=== PATIENT | female | born 1960 | race Caucasian/White ===

== ENCOUNTER 2016-06-24 09:06 | Inpatient (IN) ==
--- NOTE | 2016-06-23 20:47 | Discharge Summary ---
<MarlirosaAmbar L - Last Filed: 06/23/16 20:45> Date of Encounter: 06/27/16 - Discharge Diagnosis (1) Arthritis of knee, right Priority: Primary Status: Acute (2) DMII (diabetes mellitus, type 2) Priority: Secondary Status: Chronic Qualifiers: Diabetes mellitus complication status: with unspecified complications Diabetes mellitus senior care insulin use: unspecified senior care insulin use status Qualified Code(s): E11.8 - Type 2 diabetes mellitus with unspecified complications (3) COPD (chronic obstructive pulmonary disease) Priority: Secondary Status: Chronic Qualifiers: COPD type: unspecified COPD Qualified Code(s): J44.9 - Chronic obstructive pulmonary disease, unspecified (4) HLD (hyperlipidemia) Priority: Secondary Status: Chronic Qualifiers: Hyperlipidemia type: unspecified Qualified Code(s): E78.5 - Hyperlipidemia , unspecified (5) Obesity Priority: Secondary Status: Chronic Qualifiers: Obesity type: unspecified obesity type Obesity severity: morbid Qualified Code(s): E66.01 - Morbid (severe) obesity due to excess calories (6) Spondylolisthesis at L5-S1 level Priority: Secondary Status: Chronic - Discharge Medications Prescriptions: Sulfamethoxazole/Trimeth DS [Bactrim DS] 1 each PO BID #60 tablet Home Medications: Acetaminophen [Tylenol] 325 mg PO Q6HR 02/22/15 [History] Albuterol Sulfate [Albuterol Inhaler] 2 puff IH Q4HR PRN 02/22/15 [History] Buspirone HCl [Buspar] 10 mg PO BID 02/22/15 [History] Cetirizine HCl [Zyrtec] 10 mg PO DAILY 02/22/15 [History] Citalopram [CeleXA] 20 mg PO DAILY 02/22/15 [History] GlyBURIDE 5 mg PO DAILY 02/22/15 [History] Pioglitazone HCl [Actos] 45 mg PO DAILY 02/22/15 [History] Simvastatin [Zocor] 20 mg PO QPM 02/22/15 [History] Aspirin Enteric Coated [Aspirin EC] 325 mg PO DAILY #21 tablet. 06/23/16 [Rx] OxyCODONE Immed Rel [Roxicodone 5 MG] 5 - 10 mg PO Q6HR PRN #40 tablet 06/23/16 [Rx] Albuterol Neb [Proventil Neb] 2.5 mg IH TID 06/24/16 [History] Ketorolac OPTH Soln [Acular] 1 drop LEFT EYE QID 06/24/16 [History] Mometasone/Formoterol [Dulera 200 Mcg/5 Mcg Inhaler] 2 puff IH BID 06/24/16 [ History] Sulfamethoxazole/Trimeth DS [Bactrim DS] 1 each PO BID #60 tablet 06/25/16 [Rx] Allergies/Adverse Reactions: Allergies latex Allergy (Mild, Verified 06/24/16 23:20) Hives PATIENT TESTED NEGATIVE. Patient states sensitive to lates. aspirin Adverse Reaction (Mild, Verified 06/24/16 19:13) Vomiting hydrocodone [From Vicodin] Adverse Reaction (Mild, Verified 06/24/16 19:13) Vomiting Primary care physician: Elisa Holguin CNP - Patient Status Disposition: Home, Self-Care Condition: Good - Discharge Instructions Follow Up With: Elisa Holguin CNP [Primary Care Provider] - 09/23/16 4:00 pm Vonnie Thomas MD [Partnered Physician] - 07/17/16 2:30 pm - Hospital Course Hospital course: Ms. Narayan is a 55 year old female - Time Spent with Patient Total time spent providing and/or coordinating discharge services: <Jose Daniel Grissom - Last Filed: 06/25/16 06:23> Date of Encounter: 06/25/16 Time of Encounter: 06:22 - Discharge Diagnosis (1) Arthritis of knee, right Priority: Primary Status: Acute (2) COPD (chronic obstructive pulmonary disease) Priority: Secondary Status: Chronic Qualifiers: COPD type: unspecified COPD Qualified Code(s): J44.9 - Chronic obstructive pulmonary disease, unspecified (3) DMII (diabetes mellitus, type 2) Priority: Secondary Status: Chronic Qualifiers: Diabetes mellitus complication status: with unspecified complications Diabetes mellitus food tester insulin use: unspecified food tester insulin use status Qualified Code(s): E11.8 - Type 2 diabetes mellitus with unspecified complications (4) HLD (hyperlipidemia) Priority: Secondary Status: Chronic Qualifiers: Hyperlipidemia type: unspecified Qualified Code(s): E78.5 - Hyperlipidemia , unspecified (5) Obesity Priority: Secondary Status: Chronic Qualifiers: Obesity type: unspecified obesity type Obesity severity: morbid Qualified Code(s): E66.01 - Morbid (severe) obesity due to excess calories (6) Spondylolisthesis at L5-S1 level Priority: Secondary Status: Chronic Primary care physician: Elisa Holguin CNP - Patient Status Functional capacity at discharge: uses cane/walker Overall status at discharge: patient is progressing back to baseline - Hospital Course Hospital course: Ms. Narayan is a 55 year old female The patient had an uneventful postoperative course. They received antibiotics and physical therapy and were discharged in stable condition. There will follow -up in the office in 2 weeks. Aspirin DVT prophylaxis - Time Spent with Patient Total time spent providing and/or coordinating discharge services:
--- NOTE | 2016-06-24 09:25 | Anesthesia Evaluation PreOp ---
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: Seizures (one episode, on no meds) Other Medical History: Diabetes Type II, GERD, Other (obesity BMI=44.9) Anesthesia History: No Prior Anesthetic Complications, Past Anesthesia Alcohol Use: none Drug use: none Medications and Allergies Acetaminophen [Tylenol] 325 mg PO Q6HR 02/22/15 [History] Albuterol Sulfate [Albuterol Inhaler] 2 puff IH Q4HR PRN 02/22/15 [History] Buspirone HCl [Buspar] 10 mg PO BID 02/22/15 [History] Cetirizine HCl [Zyrtec] 10 mg PO DAILY 02/22/15 [History] Citalopram [CeleXA] 20 mg PO DAILY 02/22/15 [History] GlyBURIDE 5 mg PO DAILY 02/22/15 [History] Pioglitazone HCl [Actos] 45 mg PO DAILY 02/22/15 [History] Simvastatin [Zocor] 20 mg PO QPM 02/22/15 [History] Aspirin Enteric Coated [Aspirin EC] 325 mg PO DAILY #21 tablet. 06/23/16 [Rx] OxyCODONE Immed Rel [Roxicodone 5 MG] 5 - 10 mg PO Q6HR PRN #40 tablet 06/23/16 [Rx] Allergies latex Allergy (Mild, Unverified 02/22/15 09:36) Hives PATIENT TESTED NEGATIVE acetaminophen [From Vicodin] Adverse Reaction (Mild, Unverified 02/22/15 09:36) Vomiting aspirin Adverse Reaction (Mild, Unverified 02/22/15 09:36) Vomiting hydrocodone [From Vicodin] Adverse Reaction (Mild, Unverified 02/22/15 09:36) Vomiting - Meds/Allergy Pre-op Review Medications Reviewed: Yes Allergies Reviewed: Yes Beta Blockers on Current Med List: No Anesthesia Results - Labs Laboratory Tests 07/27/14 06/14/16 06/14/16 15:20 11:36 11:36 WBC 8.4 Hgb 13.9 Hct 44.1 Plt Count 251 PT 11.8 INR 1.1 APTT 35.6 Sodium Potassium BUN Creatinine Latex Allergen <0.35 Latex Allergen IgE Ab Allergen Test Interp 06/14/16 06/14/16 11:36 11:36 WBC Hgb Hct Plt Count PT INR APTT Sodium 139 Potassium 4.2 BUN 13 Creatinine 0.86 Latex Allergen Latex Allergen IgE Ab <0.10 Allergen Test Interp SEE NOTE - Imaging EKG: report reviewed (06/14/2016 SR, marked LAD, low QRS voltage in precordial leads, possible anterior infarct) Anesthesia Exam O2 Sat Height 1.52 m Height 1.52 m Height 1.52 m Weight 104.326 kg Weight 104.326 kg Weight 104.326 kg O2 Sat by Pulse Oximetry 95 O2 Sat by Pulse Oximetry 95 Vital Signs Temp Pulse Resp BP Pulse Ox 98.1 F 88 18 145/80 95 06/24/16 09:29 06/24/16 09:29 06/24/16 09:29 06/24/16 09:29 06/24/16 09:29 Blood Glucose* 95 Height: 5' Weight: 230 lbs NPO (# of Hours): 8 Pain Scale: 0 Pain Scale Used: Numeric (1 - 10) - HEENT Pupil (Motor): EOMI Mallampati: II Teeth: Edentulous Denture Type: Upper: Complete, Lower: Complete Oral Opening: Greater than 3 - HYDRATOR OPERATOR LOC: Oriented HYDRATOR OPERATOR Motor: Normal RUE, Normal LUE, Normal RLE, Normal LLE, Normal Face HYDRATOR OPERATOR Sensory: Normal: RUE, LUE, RLE, LLE, Face - Cardiac Rhythm: Regular Murmur: None - Pulmonary Breath Sounds: bilateral Clear Respiratory Effort: Symmetrical Anesthesia Assess/Plan ASA Score: 3 Modified Nicolette Scale for Level of Consciousness: Cooperative, oriented, and tranquil Anesthetic Plan: General, Regional Monitoring Plan: Standard Monitors Recovery Plan: PACU
[2016-06-24] MEDS ORDERED: CeFAZolin Pre 2,000 MG/100 ML 2,000 MG/100 ML BAG IVPB ONE (09:27)
[2016-06-24] MEDS ORDERED: Ringers Solution, Lactated 500 ML IVC SCH (09:30)
--- NOTE | 2016-06-24 09:44 | History & Physical Report ---
Date of Encounter: 06/24/16 Time of Encounter: 09:43 24 Hour HP Update - Instructions Instructions: If the History and Physical is less than 30 days old and was completed prior to A.M. admission and or procedure and has NOT been updated on calendar day of procedure please complete this update prior to performing procedure. - Update Patient reports changes in Medical Condition: No Changes in assessment/condition: No Changes in Medication: No Preop tests/diagnostics Reviewed: Yes Surgery Remains Indicated: Yes Consent for Planned Operative Procedure(s) Verified: Yes - Pre-Operative Checklist Preoperative Checklist Indicated: No Prophylactic Antibiotic Ordered: Yes Is VTE Prophylaxis Indicated?: Yes
[2016-06-24] MEDS: Albuterol 2.5 MG/3 ML NEBULIZER IH ONE ×2 (09:47→12:36)
[2016-06-24] MEDS ORDERED: *HR* Propofol 200 MG/20 ML VIAL IVP ONE (10:23)
[2016-06-24] MEDS ORDERED: Lidocaine -MPF 2% 2 ML VIAL ONE (10:24)
[2016-06-24] MEDS ORDERED: Dexamethasone 4 MG/ML VIAL ONE (10:24)
[2016-06-24] MEDS ORDERED: Ondansetron 4 MG/2 ML VIAL ONE (10:24)
[2016-06-24] MEDS ORDERED: *HR* FentaNYL (PF) 100 MCG/2 ML VIAL ONE ×2 (10:36→11:36)
[2016-06-24] MEDS ORDERED: *HR* Midazolam HCl 2 MG/2 ML VIAL ONE (10:36)
[2016-06-24] MEDS ORDERED: Tetracaine/PF 20 MG/2 ML AMPUL SPINA ONE (10:37)
[2016-06-24] MEDS ORDERED: Bupivacaine/EPI 1:200k 0.5%PF 30 ML VIAL ONE (10:37)
[2016-06-24] MEDS ORDERED: Bupivacaine/Clonidine Syringe 1 EACH SYRINGE ONE (10:41)
--- NOTE | 2016-06-24 11:09 | Anesthesia Procedures ---
Date of Encounter: 06/24/16 Time of Encounter: 11:06 Procedures: Anesthesia - Nerve Block Procedure Date: 06/24/16 Time: 11:07 Allergies/Adv Reactions: latex, ASA, vicodin Surgical Procedure: Right Total Knee Checklist: Correct Patient Identifier, Correct procedure, History checked Correct side: Right Blood Thinner: No Monitor Applied: BP, Pulse Oximetry Supplemental Oxygen via Nasal Cannula (L/min): 3 Sedation: Versed (mg): 2 Sedation: Fentanyl (mcg): 100 Indication: Post Op Analgesia (per dr. bedoya) Pre-op Neuro Deficits: No Block Type: Femoral Catheter placed: No Sterile Technique: Yes Ultrasound used: Yes Anatomy identified: Yes Visual spread of Local: Yes Neuro Stimulation: Yes Nerve Stimulator Range: 0.2 - 0.4 mA Smooth Injection of Local: Yes Pain with Injection of Local: No Prep: Chlorhexadine Needle: 22 x 50 mm Stimuplex Local: Other (0.5% bipivicaine, 30cc with 1:[id number] epi, 15cc plain, with 35mg tetracaine) Volume (cc): 45 Number of Attempts: 1 Complications: None/effective block Vitals: Vital Signs/O2 Sat/Glucose, Most Recent Temp Pulse Resp BP Pulse Ox 98.1 F 81 18 143/48 99 06/24/16 09:35 06/24/16 10:52 06/24/16 10:52 06/24/16 10:52 06/24/16 10:52 Blood Glucose* 95 Comments: [facility]
[2016-06-24] MEDS ORDERED: *HR* Promethazine 25 MG/ML VIAL IVP PRN (11:10)
[2016-06-24] MEDS ORDERED: *HR* Labetalol 100 MG/20 ML MDV IVP PRN (11:10)
[2016-06-24] MEDS ORDERED: Ketorolac 30 MG/ML VIAL ONE (11:29)
[2016-06-24] MEDS ORDERED: Lidocaine -MPF 4% 5 ML AMPUL ONE (11:29)
[2016-06-24] MEDS ORDERED: Vancomycin 1,000 MG VIAL ONE ×2 (11:34→11:36)
--- NOTE | 2016-06-24 12:02 | Orthopedic Operative Note ---
Date of procedure: 06/24/16 Pre-op diagnosis: Right knee arthritis Post-op diagnosis: same Procedure: Procedure: Right Total knee replacement Estimated blood loss: 200 cc Hardware: Arthrex Femur: 5 Tibia: 4 PS insert: 14 Patella: 37 Exam Under anesthesia: Loss full extension 10 degrees full flexion and no instability patient with multiple healed sores all over her body discussed other options besides knee replacement patient wanted to proceed with knee replacement surgery. 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 Procedural Notes: Patient noted to have Grade 4 arthritic changes medial compartment grade 3 arthritic changes patellofemoral and lateral compartments. Operative procedure: The patient was brought to the operating room and placed on the operating room table. After general anesthesia was administered the operative knee was examined. Findings were noted in the exam under anesthesia. The operative extremity was prepped and draped in sterile surgical fashion. The patient received IV antibiotics prior to skin incision. A standard midline incision was made centered over the patella. The incision was made through the skin and subcutaneous tissue. A medial parapatellar tendon approach was performed. Care was taken to preserve tissue along the medial aspect of the patella. And to protect the patella tendon. The deep MCL was released off the medial tibia. The infra patella fat pad was excised. Knee was brought into flexion. Patient noted to have Grade 4 arthritic changes medial compartment grade 3 arthritic changes patellofemoral and lateral compartments. The entry hole was made for the intramedullary femoral guide. The guide was seated in 6 degrees of valgus. Anterior cut was made followed by the distal cut. The ACL the PCL the medial and the lateral menisci were excised. The tibia was subluxed forward. The entry hole was made for the intramedullary tibial guide. Guide was seated to resect 2 mm off the more abnormal side. The knee was brought into flexion the distal femur was sized to a 5. The femoral guide was seated, the anterior cut was made followed by the posterior condylar cut, followed by the chamfer cuts. The finishing guide was seated the box cut was made and the lug holes were drilled. The tibia was sized to a 4, the tibial tray was seated and prepared with the large drill followed by the fin cutter. Trial reduction revealed full extension no varus valgus instability with the appropriate 14 PS Oralia. The patella was everted and cut was made at the level of the insertion of the quadriceps and patella tendon. The patella was sized to a 37 the guide was seated and the lug holes are drilled. Trial reduction revealed excellent patella tracking. All trial components were removed all bony surfaces were irrigated. The tibia was cemented first followed by the femur. The 14 PS Oralia was seated and the knee was brought into full extension. The patella was cemented and held in place with the patellar holding clamp. After the cement had hardened, the knee sat for 2 minutes with a Betadine saline solution. The knee was then irrigated out with 2 L of pulse irrigation. The extensor mechanism was closed with #2 FiberWire suture and #2 PDS suture. The subcutaneous tissue was then irrigated and closed deep with #1 PDS suture superficially with 0 PDS suture and skin was closed with skin little and Dermabond. The patient was then placed in a sterile dressing and a postoperative brace extubated and transferred to recovery room in stable condition. Anesthesia: AUDRA Surgeon: Jose Daniel Grissom Condition: stable Disposition: PACU
[2016-06-24] MEDS ORDERED: Albuterol 2.5 MG/3 ML NEBULIZER IH ONE (12:35)
[2016-06-24] MEDS ORDERED: Albuterol 2.5 MG/3 ML NEBULIZER ONE (12:36)
[2016-06-24] MEDS: *HR* HYDROmorphone (PF) 1 MG/ML SYRINGE IVP PRN ×2 (12:54→13:04)
[2016-06-24 13:09] LABS: Hematocrit 37.8 % (35.3-44.9); Hemoglobin 11.9 g/dL (11.5-15.4)
--- NOTE | 2016-06-24 13:24 | Anesthesia Evaluation Post Op ---
Date of Encounter: 06/24/16 Time of Encounter: 13:23 - Vital Signs Vital Signs: Vital Signs/O2 Sat, Most Current Temp Pulse Resp BP Pulse Ox 97.7 F 93 16 114/61 94 L 06/24/16 13:02 06/24/16 13:12 06/24/16 13:12 06/24/16 13:12 06/24/16 13:12 - Lungs Lungs: Clear Ascult./Percussion - Airway Airway: Non-obstructed - Cardiovascular Regular Rate - Mental Status Mental Status: Alert & Oriented, Answers Appropriately - Pain Pain Scale: 4 Pain Scale used: Numeric (1 - 10) - Nausea Vomiting Nausea Vomiting: Not Present - Hydration Hydration: Ice chips, Has not voided - Discharge PostOp Status: Transfer Patient to floor
[2016-06-24] MEDS ORDERED: Temazepam 15 MG CAPSULE PO PRN (13:59)
[2016-06-24] MEDS ORDERED: Naloxone 0.4 MG/ML INJ IVP PRN (13:59)
[2016-06-24] MEDS ORDERED: *HR* OxyCODONE Immed Rel 5 MG TABLET PO PRN (13:59)
[2016-06-24] MEDS ORDERED: MOM Conc 10 ML UD.LIQ PO PRN (13:59)
[2016-06-24] MEDS ORDERED: D5% in Water 1,000 ML IV PRN (13:59)
[2016-06-24] MEDS ORDERED: *HR* Dextrose 50 % in Water (Syg) 50 ML SYRINGE IVP PRN (13:59)
[2016-06-24] MEDS ORDERED: Ringers Solution, Lactated 1,000 ML IVC SCH (13:59)
[2016-06-24] MEDS ORDERED: Sennosides 8.6 MG TABLET PO PRN (13:59)
[2016-06-24] MEDS ORDERED: *HR* HYDROmorphone (PF) 1 MG/ML SYRINGE IVP PRN (13:59)
[2016-06-24] MEDS ORDERED: Albuterol Neb 1.25 MG/3 ML VIAL IH ONE (13:59)
[2016-06-24] MEDS ORDERED: Dextrose Gel 15 GM PO PRN ×2 (13:59)
[2016-06-24] MEDS ORDERED: Ondansetron 4 MG/2 ML VIAL IVP PRN (13:59)
[2016-06-24] MEDS: Albuterol 2.5 MG/3 ML NEBULIZER IH SCH ×2 (14:54→20:38)
[2016-06-24] MEDS: Acetaminophen 325 MG TABLET PO SCH ×3 (14:54→23:17)
[2016-06-24] MEDS: *HR* OxyCODONE Immed Rel 5 MG TABLET PO PRN ×3 (14:54→23:16)
[2016-06-24] MEDS: Insulin LISPRO 300 UNITS/3 ML VIAL SQ SCH ×2 (16:33→17:42)
[2016-06-24] MEDS: Ketorolac OPTH Soln 5 ML BOTTLE LEFT EYE SCH ×3 (16:34→20:47)
[2016-06-24] MEDS: *HR* Enoxaparin 30 MG/0.3 ML SYRINGE SQ SCH (17:45)
[2016-06-24] MEDS: ceFAZolin 2,000 MG in D5% in Water 100 ML IVPB SCH (17:50)
[2016-06-24] MEDS ORDERED: *HR* Enoxaparin 30 MG/0.3 ML SYRINGE SQ SCH (18:00)
[2016-06-24] MEDS: Sulfamethoxazole/Trimeth DS 1 EACH TABLET PO SCH (20:46)
[2016-06-24] MEDS: (Mometasone/Formoterol [Dulera 200 Mcg/5 Mcg Inhaler] IH SCH (23:12)
[2016-06-25] MEDS: ceFAZolin 2,000 MG in D5% in Water 100 ML IVPB SCH (01:38)
[2016-06-25] MEDS: *HR* OxyCODONE Immed Rel 5 MG TABLET PO PRN ×2 (03:28→09:13)
[2016-06-25] MEDS: *HR* Enoxaparin 30 MG/0.3 ML SYRINGE SQ SCH (05:38)
[2016-06-25] MEDS: Acetaminophen 325 MG TABLET PO SCH ×2 (05:38→11:27)
[2016-06-25 06:08] LABS: Hematocrit 36.2 % (35.3-44.9); Hemoglobin 11.5 g/dL (11.5-15.4)
[2016-06-25 06:11] LABS: BUN/Creatinine Ratio 18 (6-26); Blood Urea Nitrogen 14 mg/dL (7-20); Calcium 9.3 mg/dL (8.6-10.8); Carbon Dioxide 22 mEq/L (19-29); Chloride 105 mEq/L (98-109); Glucose 139 mg/dL (70-99); Osmolality,Calculated 285 (280-300); Potassium 4.9 mEq/L (3.5-4.5); Sodium 136 mEq/L (136-145); eGFR For African Americans > 60 (> 60); eGFR For Non-African Americans > 60 (> 60)
--- NOTE | 2016-06-25 06:24 | Orthopedics Progress Note ---
Date of Encounter: 06/25/16 Time of Encounter: 06:24 - Assessment and Plan (1) Arthritis of knee, right Current Visit: Yes Status: Acute (2) COPD (chronic obstructive pulmonary disease) Current Visit: Yes Status: Chronic Qualifiers: COPD type: unspecified COPD Qualified Code(s): J44.9 - Chronic obstructive pulmonary disease, unspecified (3) DMII (diabetes mellitus, type 2) Current Visit: Yes Status: Chronic Qualifiers: Diabetes mellitus complication status: with unspecified complications Diabetes mellitus mcc insulin use: unspecified mcc insulin use status Qualified Code(s): E11.8 - Type 2 diabetes mellitus with unspecified complications (4) HLD (hyperlipidemia) Current Visit: Yes Status: Chronic Qualifiers: Hyperlipidemia type: unspecified Qualified Code(s): E78.5 - Hyperlipidemia , unspecified (5) Obesity Current Visit: Yes Status: Chronic Qualifiers: Obesity type: unspecified obesity type Obesity severity: morbid Qualified Code(s): E66.01 - Morbid (severe) obesity due to excess calories (6) Spondylolisthesis at L5-S1 level Current Visit: No Status: Chronic Subjective Interval history: Patient was seen this morning doing well without complaints. Afebrile vital signs stable. Operative extremity: Neurovascularly intact Dressing clean dry and intact Calves nontender Assessment and plan: Continue with postoperative care Hematocrit 36 discharged today Objective Vital signs: Vital Signs Temp Pulse Resp BP Pulse Ox 06/25/16 04:00 98.3 F 85 18 128/84 98 06/24/16 23:39 98.0 F 55 17 122/80 100 06/24/16 20:00 98.1 F 84 18 120/80 98 06/24/16 17:05 97.4 F L 86 16 103/64 93 L 06/24/16 16:48 16 95 06/24/16 16:05 97.3 F L 84 16 120/63 93 L 06/24/16 15:01 97.6 F 82 16 104/56 94 L 06/24/16 14:35 96.3 F L 78 16 105/70 93 L 06/24/16 14:13 98.0 F 84 16 133/82 92 L 06/24/16 14:01 98.0 F 84 16 133/82 92 L 06/24/16 13:22 98.0 F 86 16 104/70 95 06/24/16 13:12 93 16 114/61 94 L 06/24/16 13:02 97.7 F 93 16 115/76 95 06/24/16 12:52 93 18 123/47 95 06/24/16 12:42 97 18 107/82 100 06/24/16 12:32 97.2 F L 89 18 130/76 100 06/24/16 11:05 86 18 131/75 98 06/24/16 10:52 81 18 143/48 99 06/24/16 09:35 98.1 F 88 18 145/80 95 06/24/16 09:29 98.1 F 88 18 145/80 95 Intake and Output 06/24/16 06/24/16 06/25/16 15:59 23:59 07:59 Intake Total 400 / 400 200 / 200 Output Total 200 / 200 100 / 100 300 / 300 Balance -200 / -200 300 / 300 -100 / -100 Intake: IV Fluids 200 / 200 Ancef 2,000 MG In 200 / 200 Dextrose 5% 100 ML @ 200 mls/hr IVPB Q8H [facility] Rx#: [id number] Oral 400 / 400 Output: Urine 100 / 100 300 / 300 Estimated Blood Loss 200 / 200 Other: Weight 104.326 kg 163.4 kg Blood Glucose* 108 177 - Labs CBC & BMP: 06/25/16 05:46 06/25/16 05:46 Labs: Abnormal lab results Potassium 4.9 mEq/L (3.5-4.5) H 06/25/16 05:46 Glucose 139 mg/dL (70-99) H 06/25/16 05:46 POC Glucose 177 (58-89) H 06/24/16 21:30 - VTE Documentation of Mechanical Device: Venous foot pump, device Consult Discharge Plan - Plan Referrals: Elisa Holguin CNP [Primary Care Provider] - 09/23/16 4:00 pm Vonnie Thomas MD [Partnered Physician] - 07/17/16 2:30 pm Prescriptions: Sulfamethoxazole/Trimeth DS [Bactrim DS] 1 each PO BID #60 tablet
[2016-06-25] MEDS: Albuterol 2.5 MG/3 ML NEBULIZER IH SCH (07:51)
[2016-06-25] MEDS: Insulin LISPRO 300 UNITS/3 ML VIAL SQ SCH ×2 (08:27→11:28)
[2016-06-25] MEDS ORDERED: *HR* Pioglitazone 15 MG TABLET PO SCH (09:00)
[2016-06-25] MEDS ORDERED: *HR* GlyBURIDE 5 MG TABLET PO SCH (09:00)
[2016-06-25] MEDS ORDERED: Loratadine 10 MG TABLET PO SCH (09:00)
[2016-06-25] MEDS: Ketorolac OPTH Soln 5 ML BOTTLE LEFT EYE SCH ×2 (09:12→11:27)
[2016-06-25] MEDS: Sulfamethoxazole/Trimeth DS 1 EACH TABLET PO SCH (09:13)
[2016-06-25] MEDS: (Mometasone/Formoterol [Dulera 200 Mcg/5 Mcg Inhaler] IH SCH (09:13)
[2016-06-25 11:15] VITALS: BP 117/75
== END 2016-06-25 14:15 | disposition home or self-care (01) | DRG 302 ==
LOC: SAMDAY 09:06 → 3NENU 14:20
PROVIDERS: ADMIT Orthopaedic Surgery; ATTEND Orthopaedic Surgery